=== PATIENT | female | born 1995 | race Caucasian/White ===

== ENCOUNTER 2018-09-09 20:35 | Observation (INO) | payer MEDICAID, OTHER ==
[~2018-09-09] VITALS: Ht 157.5 cm; Wt 48.5 kg
[2018-09-09] MEDS: LACTATED RINGERS 1,000 ML IV SCH (21:49)
[2018-09-09 22:20] LABS: HEMATOCRIT. 30.7 % (36.0-48.0); HEMOGLOBIN. 10.7 g/dL (12.0-16.0); MEAN CORPUSCULAR HEMOGLOBIN 31.3 pg (28.0-32.0); MEAN CORPUSCULAR VOLUME 89.6 fL (81.0-99.0); MEAN PLATELET VOLUME 9.3 fl (7.4-10.4); PLATELET 180 x1000/uL (130-400); RED BLOOD CELL COUNT 3.42 mill/uL (4.2-5.4); RED CELL DISTRIBUTION WIDTH 13.7 % (11.6-14.6)
[2018-09-09 22:30] LABS: CLARITY URINE CLOUDY (CLEAR); COLOR URINE YELLOW (YELLOW); KETONES URINE NEGATIVE (NEGATIVE); LEUKOCYTE ESTERASE URINE 2+ (NEGATIVE); NITRITE URINE NEGATIVE (NEGATIVE); OCCULT BLOOD URINE NEGATIVE (NEGATIVE); PROTEIN URINE NEGATIVE (NEGATIVE); SPECIFIC GRAVITY URINE 1.017 (1.005-1.030)
[2018-09-10] MEDS ORDERED: CEFAZOLIN SODIUM 1000MG/VIAL IV SCH (00:30)
[2018-09-10] MEDS ORDERED: CEFAZOLIN 2,000 MG in DEXT 5% WATER 100 ML IV SCH ×2 (00:30→06:00)
[2018-09-10 02:21] LABS: PLATELET ESTIMATE NORMAL
[2018-09-10] MEDS: LACTATED RINGERS 1,000 ML IV SCH (02:41)
[2018-09-10] MEDS ORDERED: ACETAMINOPHEN 325MG TABLET PO PRN (02:45)
[2018-09-10] MEDS ORDERED: LACTATED RINGERS 1,000 ML IV SCH (03:03)
[2018-09-10] MEDS ORDERED: GENTAMICIN 80MG PREMIX 100 ML IV ONE (03:15)
[2018-09-10] MEDS ORDERED: GENTAMICIN 80MG PREMIX 100 ML IV SCH (04:00)
[2018-09-10 05:48] LABS: CHLORIDE 108 mEq/L (98-107)
[2018-09-10] MEDS ORDERED: POTASSIUM CHLORIDE 20MEQ TABLET SR PO SCH (06:30)
[2018-09-10 14:22] LABS: *AMPHETAMINES SCREEN URINE NEGATIVE (NEGATIVE); *BARBITURATES SCREEN URINE NEGATIVE (NEGATIVE); *BENZODIAZEPINES SCREEN URINE NEGATIVE (NEGATIVE); *COCAINE SCREEN URINE NEGATIVE (NEGATIVE)
[2018-09-10 14:23] LABS: CANNABINOID URINE SCREEN NEGATIVE (NEGATIVE); METHADONE URINE SCREEN NEGATIVE (NEGATIVE); OPIATES URINE SCREEN NEGATIVE (NEGATIVE); PHENCYCLIDINE URINE SCREEN NEGATIVE (NEGATIVE)
== END 2018-09-10 09:30 | disposition left against medical advice (07) ==
LOC: 8 EST LDRP 20:35 → INTOOBSV 20:35 → OBSVTOIN 20:35 → 8 EST A/PP 09-10 07:22
PROVIDERS: ADMIT Obstetrics & Gynecology; ATTEND Obstetrics & Gynecology
DX: O23.02 Infections of kidney in pregnancy, second trimester (principal); E87.6 Hypokalemia; O99.282 Endocrine, nutritional and metabolic diseases complicating pregnancy, second trimester; Z79.899 Other long term (current) drug therapy; Z88.0 Allergy status to penicillin; Z3A.27 27 weeks gestation of pregnancy
CPT/HCPCS: 36415; 76805; 76818; 80053; 80305; 81003; 85025; 86850; 86900; 86901; 87077; 87086; 87186; 96360; 96365; 96366; 96367; 99281; G0378; J0690; J1580; J7060; 96361; J7120

== ENCOUNTER 2018-12-24 22:18 | Emergency (ER) | payer MEDICAID | END 2018-12-24 23:11 | disposition left against medical advice (07) | LOC: ER 22:18 | DX: R07.89 Other chest pain (principal); Z53.21 Procedure and treatment not carried out due to patient leaving prior to being seen by health care provider ==

== ENCOUNTER 2019-12-02 00:47 | Emergency (ER) | payer MEDICAID, OTHER ==
[~2019-12-02] VITALS: Ht 157.5 cm; Wt 56.0 kg
[2019-12-02 00:57] VITALS: BP 123/73
== END 2019-12-02 01:51 | disposition home or self-care (01) ==
LOC: ER 00:47
DX: J45.909 Unspecified asthma, uncomplicated (principal); Z88.0 Allergy status to penicillin
CPT/HCPCS: 99283

== ENCOUNTER 2020-06-01 18:22 | Inpatient (IN) | payer OTHER ==
[~2020-06-01] VITALS: Ht 157.5 cm; Wt 54.4 kg
[2020-06-01] MEDS ORDERED: ACETAMINOPHEN 325MG TABLET PO STA (19:08)
[2020-06-01 20:52] LABS: CLARITY URINE CLOUDY (CLEAR); COLOR URINE YELLOW (YELLOW); KETONES URINE 3+ (NEGATIVE); LEUKOCYTE ESTERASE URINE TRACE (NEGATIVE); NITRITE URINE NEGATIVE (NEGATIVE); OCCULT BLOOD URINE NEGATIVE (NEGATIVE); PH URINE 6.5 (4.5-8.0); PROTEIN URINE NEGATIVE (NEGATIVE); SPECIFIC GRAVITY URINE 1.022 (1.005-1.030)
[2020-06-01 20:53] LABS: BASOPHILS % 0.3 % (0.0-2.0); EOSINOPHILS % 0.5 % (0.0-5.0); HEMATOCRIT. 39.1 % (36.0-48.0); HEMOGLOBIN. 13.3 g/dL (12.0-16.0); LYMPHOCYTES % 7.3 % (20.0-50.0); MEAN CORPUSCULAR HEMOGLOBIN 28.8 pg (28.0-32.0); MEAN CORPUSCULAR VOLUME 84.9 fL (81.0-99.0); MEAN PLATELET VOLUME 8.9 fl (7.4-10.4); MONOCYTES % 4.1 % (2.0-8.0); NEUTROPHILS % 87.8 % (40.0-76.0); PLATELET 238 x1000/uL (130-400); RED BLOOD CELL COUNT 4.61 mill/uL (4.2-5.4); RED CELL DISTRIBUTION WIDTH 14.4 % (11.6-14.6)
[2020-06-01 20:56] LABS: PROTHROMBIN TIME 10.4 sec (9.6-11.0)
[2020-06-01 21:04] LABS: CHLORIDE 106 mEq/L (98-107)
[2020-06-01] MEDS ORDERED: PIPERACILLIN/TAZ 3.375G PREMIX 50 ML IV ONE (21:15)
[2020-06-01 21:27] LABS: B-HCG QUANTITATIVE 68646 mIU/mL (<3)
[2020-06-02] VITALS (8 sets, daily range): BP systolic 97–106; BP diastolic 43–60
[2020-06-02] MEDS ORDERED: ONDANSETRON HCL 4MG/2ML INJ IV PRN (02:30)
[2020-06-02] MEDS ORDERED: MORPHINE SULFATE 2 MG/ML CPJ (NOT FOR IM USE) IV PRN (02:30)
[2020-06-02] MEDS ORDERED: ONDA4TAB5 MT (02:33)
[2020-06-02] MEDS ORDERED: *PATIENT'S OWN MEDICATION STORAGE XX SCH (04:30)
[2020-06-02 05:40] LABS: BASOPHILS % 0.4 % (0.0-2.0); EOSINOPHILS % 1.1 % (0.0-5.0); HEMATOCRIT. 35.1 % (36.0-48.0); LYMPHOCYTES % 16.8 % (20.0-50.0); MEAN CORPUSCULAR HEMOGLOBIN 29.4 pg (28.0-32.0); MEAN CORPUSCULAR VOLUME 85.9 fL (81.0-99.0); MEAN PLATELET VOLUME 9.3 fl (7.4-10.4); MONOCYTES % 4.8 % (2.0-8.0); NEUTROPHILS % 76.9 % (40.0-76.0); PLATELET 214 x1000/uL (130-400); RED BLOOD CELL COUNT 4.09 mill/uL (4.2-5.4); RED CELL DISTRIBUTION WIDTH 14.2 % (11.6-14.6)
[2020-06-02 05:49] LABS: CHLORIDE 105 mEq/L (98-107)
[2020-06-02] MEDS: DEXT 5%/0.45% NACL KCL 20MEQ/L 1,000 ML IV SCH ×3 (07:03→22:00)
[2020-06-02] MEDS: PIPERACILLIN/TAZOBACTAM 3.375 G in DEXT 5% WATER 100 ML IV SCH ×3 (08:46→21:18)
[2020-06-02] MEDS ORDERED: ACETAMINOPHEN 325MG TABLET PO PRN (12:30)
[2020-06-02] MEDS ORDERED: POTASSIUM CHLORIDE 20MEQ TABLET SR PO NR (12:30)
[2020-06-02] MEDS ORDERED: PIPERACILLIN/TAZOBACTAM 3.375 G/VIAL IV SCH (14:00)
[2020-06-03 05:15] VITALS: BP 104/50
[2020-06-03] MEDS: PIPERACILLIN/TAZOBACTAM 3.375 G in DEXT 5% WATER 100 ML IV SCH ×2 (05:54→13:24)
[2020-06-03 06:23] LABS: CHLORIDE 106 mEq/L (98-107)
[2020-06-03 06:43] LABS: BASOPHILS % 0.7 % (0.0-2.0); EOSINOPHILS % 3.6 % (0.0-5.0); HEMATOCRIT. 35.8 % (36.0-48.0); HEMOGLOBIN. 11.9 g/dL (12.0-16.0); LYMPHOCYTES % 26.2 % (20.0-50.0); MEAN CORPUSCULAR HEMOGLOBIN 28.5 pg (28.0-32.0); MEAN PLATELET VOLUME 9.1 fl (7.4-10.4); MONOCYTES % 9.1 % (2.0-8.0); NEUTROPHILS % 60.4 % (40.0-76.0); PLATELET 226 x1000/uL (130-400); RED BLOOD CELL COUNT 4.16 mill/uL (4.2-5.4); RED CELL DISTRIBUTION WIDTH 14.3 % (11.6-14.6)
[2020-06-03 08:00] VITALS: BP 101/51
[2020-06-03] MEDS: DEXT 5%/0.45% NACL KCL 20MEQ/L 1,000 ML IV SCH (09:06)
[2020-06-03 12:00] VITALS: BP 106/53
[2020-06-03 14:43] VITALS: BP 106/53
== END 2020-06-03 15:20 | disposition home or self-care (01) | DRG 566 ==
LOC: ER 18:22 → 6EST 23:54 → ENRESERV 06-02 01:18
PROVIDERS: ADMIT Internal Medicine; ATTEND Internal Medicine
DX: O26.611 Liver and biliary tract disorders in pregnancy, first trimester (principal); O99.281 Endocrine, nutritional and metabolic diseases complicating pregnancy, first trimester; K80.50 Calculus of bile duct without cholangitis or cholecystitis without obstruction; O99.511 Diseases of the respiratory system complicating pregnancy, first trimester; E87.6 Hypokalemia; J45.909 Unspecified asthma, uncomplicated; Z3A.13 13 weeks gestation of pregnancy; Z88.0 Allergy status to penicillin
CPT/HCPCS: 36415; 74181; 76700; 76801; 76857; 80048; 80053; 81003; 84702; 85025; 86850; 86900; 96365; 99291; J2405; J2543; J7060